=== PATIENT | female | born 1985 | race Caucasian/White ===

== ENCOUNTER 2021-11-10 13:42 | Emergency (ER) | payer OTHER ==
[~2021-11-10 13:42] MED LIST: ERYTHROMYCIN500 MG PO; IBUPROFEN600 MG PO; IBUPROFEN800 MG PO; LEVAQUIN750 MG PO; PHENERGAN 25 MG25 M1 PO; TOLCYLEN7.5 ML TP
[2021-11-10 15:05] LABS: HEMOGLOBIN 9.6 gm/dl (12.3-15.3); RED BLOOD COUNT 3.57 M/UL (4.00-5.10); WHITE BLOOD COUNT 9.8 K/UL (4.5-11.0)
[2021-11-10 15:32] LABS: BUN/CREATININE RATIO 13 (0-10)
[2021-11-10] MEDS ORDERED: MACROBID 100 M100 MG PO (16:02)
[2021-11-10] MEDS ORDERED: DOXYCYCLINE HY100 MG PO (16:02)
[2021-11-10] MEDS ORDERED: CYCLOBENZAPRINE10 MG PO (16:02)
== END 2021-11-10 16:35 | disposition home or self-care (01) ==
LOC: ER1 13:42
PROVIDERS: Family Medicine
DX: N20.0 Calculus of kidney (principal); J18.9 Pneumonia, unspecified organism; Z20.822 Contact with and (suspected) exposure to COVID-19; D64.9 Anemia, unspecified; F17.200 Nicotine dependence, unspecified, uncomplicated
CPT/HCPCS: 71045; 80053; 81001; 82550; 82553; 83605; 83690; 84484; 85025; 87086; 96374; 96375; 99284; J0696; J1885; J7030; U0002